=== PATIENT | female | born 1945 | race Two or more races ===

== ENCOUNTER 2019-06-24 19:29 | Inpatient (IN) | payer MEDICARE, MEDICAID ==
[~2019-06-24] VITALS: Ht 160 cm; Wt 69.9 kg
--- NOTE | 2019-06-24 19:30 | NUR ---
PT BIB PRIVATE AMBULANCE C/O PSYCH EVAL FOR VOLUNTARY GEROPSYCH ADMISSION. PT IS AAOX4, NOT IN RESPIRATORY DISTRESS, HOOKED TO MONITOR, KEPT RESTED AND COMFORTABLE, WILL CONTINUE TO MONITOR.
--- NOTE | 2019-06-24 19:58 | NUR ---
AT BEDSIDE FOR EVAL.
--- NOTE | 2019-06-24 20:03 | NUR ---
BED ASSIGNMENT 213D
--- NOTE | 2019-06-24 20:12 | NUR ---
LYNDA BOURGEOIS AT BEDSIDE FOR BLOOD DRAW.
[2019-06-24 20:27] LABS: BASOPHILS # (AUTO) 0.1 /CMM (0.0-0.2); BASOPHILS % (AUTO) 0.8 % (0.0-2.0); EOSINOPHILS % (AUTO) 0.9 % (0.0-6.0); HEMATOCRIT 37 % (33-45); HEMOGLOBIN 12.4 g/dL (11.5-14.8); LYMPHOCYTES # (AUTO) 2.4 /CMM (0.8-4.8); LYMPHOCYTES % (AUTO) 22.9 % (20.0-44.0); MEAN CORPUSCULAR HGB CONC 34 g/dl (31.0-36.0); MEAN CORPUSCULAR VOLUME 89 fL (82-100); MONOCYTES # (AUTO) 1.2 /CMM (0.1-1.30); MONOCYTES % (AUTO) 11.6 % (2.0-12.0); NEUTROPHILS # (AUTO) 6.6 /CMM (1.8-8.9); NEUTROPHILS % (AUTO) 63.8 % (43.0-81.0); PLATELET COUNT (AUTO) 270 /CMM (150-450); RED BLOOD CELL COUNT(AUTO) 4.12 MIL/uL (4.0-5.2); WHITE BLOOD COUNT (AUTO) 10.3 K/uL (4.3-11.0)
[2019-06-24 20:38] LABS: CALCIUM, SERUM 8.7 mg/dL (8.5-10.1); CARBON DIOXIDE 29 mmol/L (21-32); CHLORIDE 98 mmol/L (98-107); CREATININE 0.8 mg/dL (0.6-1.3); GLUCOSE 258 mg/dL (74-106); POTASSIUM 3.4 mmol/L (3.5-5.1); SODIUM SERUM 134 mmol/L (136-145); UREA NITROGEN, BLOOD 10 mg/dL (7-18)
--- NOTE | 2019-06-24 20:53 | NUR ---
URINE SPECIMEN COLLECTED AND SENT TO LAB.
--- NOTE | 2019-06-24 21:20 | NUR ---
REPORT GIVEN TO ZHANG MOSQUERA FOR ASHLEY.
[2019-06-24 21:27] LABS: BILIRUBIN,URINE Negative (NEGATIVE); BLOOD, URINE Trace-intact Ery/uL (NEGATIVE); COLOR,URINE Yellow (YELLOW); KETONES,URINE Negative (NEGATIVE); LEUKOCYTE ESTERASE ,URINE Moderate (NEGATIVE); NITRITE, URINE Negative (NEGATIVE); PROTEIN,URINE Negative (NEGATIVE); UGLUCOSE 100 MG/DL mg/dL (NEGATIVE)
[2019-06-24 21:29] LABS: APPEARANCE,URINE SLIGHTLY HAZY (CLEAR)
[2019-06-24 21:40] LABS: BACTERIA,URINE Many /HPF (None Seen); RBC,URINE 0-2 /HPF (0-2); SQUAMOUS EPITHELIAL CELL,UR Moderate /HPF (None Seen)
[2019-06-24] MEDS ORDERED: ACETAMINOPHEN 325 MG TABLET PO PRN (22:30)
[2019-06-24] MEDS ORDERED: LORAZEPAM 0.5 MG TABLET PO PRN (22:30)
[2019-06-24] MEDS ORDERED: BLOOD SUGAR DIAGNOSTIC 1 EACH STRIP IN ONE (22:30)
[2019-06-24] MEDS ORDERED: MAGNESIUM HYDROXIDE 30 ML UDC PO PRN (22:30)
--- NOTE | 2019-06-24 22:30 | NUR ---
GPS RN NOTES: INTIALLY BLOOD SUGAR CHECK ON ADMISSION. BLOOD SUGAR 230, PT REFUSED TO TAKE REGULAR INSULIN COVERAGE. ENCOURAGE X 3 EXPLAIN RISK AND BENEFITS. PT REFUSED STRONGLY. WILL CONTINUE TO MONITOR.
[2019-06-24] MEDS ORDERED: SIMV40TA5 PO (22:32)
[2019-06-24] MEDS ORDERED: ESCI20TA PO (22:39)
[2019-06-24] MEDS ORDERED: GABA-534 PO (22:39)
[2019-06-24] MEDS ORDERED: TRAM50TA2 (22:39)
[2019-06-24] MEDS ORDERED: HYDR-3980 PO (22:44)
[2019-06-24] MEDS ORDERED: TRAZ-214 (22:46)
[2019-06-24] MEDS ORDERED: INSU100V39 SQ (22:53)
[2019-06-24] MEDS ORDERED: INSU100V7 SQ (22:53)
[2019-06-24] MEDS ORDERED: SITA1TAB6 PO (22:56)
[2019-06-24] MEDS ORDERED: DEXL60CA3 PO (22:57)
[2019-06-24] MEDS ORDERED: PARO10TA86 PO (23:00)
[2019-06-24] MEDS ORDERED: HYDR50CA PO (23:02)
[2019-06-25] MEDS ORDERED: DEXTROSE 50%-WATER 50 ML DISP.SYRIN IV PRN
--- NOTE | 2019-06-25 00:15 | NUR ---
GPS RN NOTES: PT REFUSED LISINOPRIL 5MG PO . ENCOURAGE X 3 EXPLAIN RISK AND BENEFITS. PT REFUSED STRONGLY. BLOOD PRESSURE WNL. BP 130/72 AND PULSE 72. WILL CONTINUE TO MONITOR.
[2019-06-25 00:55] VITALS: BP 132/70
[2019-06-25] MEDS: INSULIN REGULAR, HUMAN 100 UNIT/ML 3 ML VIAL SQ PRN ×5 (00:57→21:30)
--- NOTE | 2019-06-25 00:58 | NUR ---
GPS CHEMIST PHYSICAL NOTES: ADMITTED 74 Y/O FEMALE. PT ADMITTED FROM [facility] ER TO GPS ON 5150. PER HOLD PATIENT CLAIMS SHE IS DEPRESSED AND HAVING SUICIDAL IDEATION WITH PLAN TO OVERDOSE ON INSULIN. PATIENT STATED , "I WANT A QUICK WAY TO GO". PATIENT REPORTED SHE LOST HER BEST FRIEND LAST YEAR AND SHE HAD PROBLEMS COPING WITH IT SINCE THEN. UPON FACE TO FACE ASSESSMENT PATIENT IS ALERT ORIENTED X 2-3, COOPERATIVE, ANXIOUS, DEPRESSED, FLAT AFFECT, DISORGANIZED, AND NEEDY. VENU SI/ HI AT THIS TIME. PATIENT STATES, "IM IN HERE BECAUSE I HAD PAIN AND IM OVERWHELMED." PATIENT REFUSED TO SIGN CONSENT PAPERS DUE TO STRESS/ NOT IN THE MOOD. ENVIRONMENTAL SAFETY CHECK DONE Q15MIN. ENCOURAGE PT TO VERBALIZE FEELINGS AND CONCERNS TO STAFF. ORIENTED TO THE UNIT . MD AWARE AND NOTIFIED OF ADMISSION, BELONGINGS AND CONTRABAND WERE DONE. NURSING ASSESSMENT DONE. SKIN ASSESSMENT DONE; PICTURE TAKEN AND PLACE IN CHART. PT RIGHTS DISCUSS BY MEAT GRADER. PROVIDE THE PT WITH HANDBOOK AND MEDICATION GUIDE. VITALS SIGNS WNL. NO S/S RESP DISTRESS NOTED. CONTINUE TO MONITOR
[2019-06-25] MEDS ORDERED: Z GUARD REMEDY 4 OZ OINT TP PRN (05:30)
--- NOTE | 2019-06-25 06:45 | NUR ---
GPS RN NOTES: LEFT A MESSAGE TO JUANITA LOU TELEPHONE NUMBER [phone]. UNABLE TO NOTIFY RONNA ESPINOZA TELEPHONE [phone] DUE TO BUSY LINE. ENDORSE TO NEXT SHIFT FOR CONTINUE OF CARE.
[2019-06-25 07:14] LABS: BASOPHILS # (AUTO) 0.1 /CMM (0.0-0.2); BASOPHILS % (AUTO) 1.1 % (0.0-2.0); EOSINOPHILS % (AUTO) 1.2 % (0.0-6.0); HEMATOCRIT 37 % (33-45); HEMOGLOBIN 12.5 g/dL (11.5-14.8); LYMPHOCYTES # (AUTO) 2.9 /CMM (0.8-4.8); LYMPHOCYTES % (AUTO) 28.9 % (20.0-44.0); MEAN CORPUSCULAR HGB CONC 34 g/dl (31.0-36.0); MEAN CORPUSCULAR VOLUME 88 fL (82-100); MONOCYTES # (AUTO) 1.1 /CMM (0.1-1.30); MONOCYTES % (AUTO) 10.9 % (2.0-12.0); NEUTROPHILS # (AUTO) 5.8 /CMM (1.8-8.9); NEUTROPHILS % (AUTO) 57.9 % (43.0-81.0); PLATELET COUNT (AUTO) 285 /CMM (150-450); RED BLOOD CELL COUNT(AUTO) 4.23 MIL/uL (4.0-5.2)
--- NOTE | 2019-06-25 07:17 | NUR ---
GPS RN NOTES: PATIENT WAS COMPLAINT WITH CARE.NO ACUTE DISTRESS NOTED. ALL NEEDS ATTENDED AND ANTICIPATED WILL CONTINUE PLAN OF CARE.
[2019-06-25 07:59] LABS: CHOLESTEROL 154 mg/dL (<200); HDL CHOLESTEROL 27 mg/dL (40-60); LDL 109 mg/dL (0-99); TRIGLYCERIDES 102 mg/dL (30-150)
[2019-06-25 08:00] VITALS: BP 110/65
[2019-06-25 08:00] LABS: ALBUMIN 2.5 g/dL (3.4-5.0); BILIRUBIN,TOTAL 0.3 mg/dL (0.2-1.0); CALCIUM, SERUM 8.8 mg/dL (8.5-10.1); CREATININE 0.8 mg/dL (0.6-1.3); MAGNESIUM 1.8 mg/dL (1.8-2.4); PHOSPHORUS 2.8 mg/dL (2.5-4.9); POTASSIUM 3.4 mmol/L (3.5-5.1); TOTAL PROTEIN, SERUM 7.5 g/dL (6.4-8.2)
[2019-06-25 08:12] LABS: THYROID STIMULATING HORMONE 1.571 uIU/mL (0.358-3.74)
[2019-06-25] MEDS: GABAPENTIN 300 MG CAPSULE PO SCH ×2 (08:48→17:20)
[2019-06-25] MEDS: BLOOD SUGAR DIAGNOSTIC 1 EACH STRIP IN SCH ×4 (08:48→21:16)
[2019-06-25] MEDS: DOCUSATE SODIUM 100 MG CAPSULE PO SCH ×2 (08:48→17:20)
[2019-06-25] MEDS: LISINOPRIL (5MG) 5 MG TABLET PO SCH ×3 (08:49→21:21)
[2019-06-25] MEDS: MAG HYDROX/AL HYDROX/SIMETH 30 ML UDC PO PRN ×2 (08:54→08:57)
[2019-06-25] MEDS: NITROFURANTOIN/NITROFURAN MAC 100 MG CAPSULE PO SCH ×2 (09:40→21:21)
[2019-06-25] MEDS: Z GUARD REMEDY 4 OZ OINT TP SCH (09:45)
--- NOTE | 2019-06-25 09:46 | NUR ---
GPS/RN-NOTES PATIENT STATED" I NEED ATIVAN FOR MY ANXIETY" ATIVAN 0.5MG P.O GIVEN PRN ORDER. WILL CONT. MONITORING FOR SAFETY AND BEHAVIOR.
--- NOTE | 2019-06-25 09:55 | NUR ---
GPS/RN-NOTES PATIENT IN THE DAY ROOM WATCHING TV,STATED" MAALOX HELPS A LITTLE".
--- NOTE | 2019-06-25 10:50 | NUR ---
GPS/RN-NOTES PATIENT IN THE DAY ROOM WATCHING TV,CALM NO ACUTE DISTRESS NOTED.
[2019-06-25] MEDS: LINAGLIPTIN 5 MG TABLET PO SCH (11:11)
[2019-06-25] MEDS: ESCITALOPRAM OXALATE (10 MG) 10 MG TABLET PO SCH (11:24)
[2019-06-25] MEDS ORDERED: POTASSIUM CHLORIDE 20 MEQ TAB.PRT.SR PO SCH (12:00)
[2019-06-25] MEDS: INSULIN ASPART/LISPRO 100 UNIT/ML CARTRIDGE SQ SCH ×2 (12:37→17:23)
[2019-06-25] MEDS: HYDROCODONE/APAP 5/325MG 1 EACH TABLET PO PRN (14:31)
--- NOTE | 2019-06-25 15:02 | NUR ---
UR NOTE: NAYE faxed clinicals to William with [facility] fax: [phone] P: [phone] as pt is under [place] for fee for service and is managed by [place].
--- NOTE | 2019-06-25 15:03 | NUR ---
SW attempted to contact pts friend/roommate Jeyson [phone]; phone number is not accepting calls at this time.
--- NOTE | 2019-06-25 15:48 | NUR ---
INITIAL DISCHARGE NOTE: Patient wishes to discharge back home [address] [facility] [address] . SW will help form a safe and proper discharge in collaboration with .
[2019-06-25 16:00] VITALS: BP 108/54
[2019-06-25] MEDS: METFORMIN 500 MG TABLET PO SCH (17:20)
[2019-06-25 20:29] VITALS: BP 102/62
[2019-06-25] MEDS: SIMVASTATIN 20 MG TABLET PO SCH (21:21)
[2019-06-25] MEDS: INSULIN GLARGINE, 100 UNIT/ML CARTRIDGE SQ SCH (21:35)
[2019-06-26] MEDS: HYDROCODONE/APAP 5/325MG 1 EACH TABLET PO PRN ×2 (06:16→16:02)
[2019-06-26 07:20] LABS: CALCIUM, SERUM 8.7 mg/dL (8.5-10.1); CREATININE 0.7 mg/dL (0.6-1.3); POTASSIUM 3.6 mmol/L (3.5-5.1)
[2019-06-26] MEDS: BLOOD SUGAR DIAGNOSTIC 1 EACH STRIP IN SCH ×4 (07:55→21:35)
[2019-06-26 08:00] VITALS: BP 121/64
--- NOTE | 2019-06-26 08:00 | NUR ---
RN NOTE: PATIENT REFUSED 0730 INSULIN PER SLIDING SCALE x3. PATIENT STATES "I'M SLEEPING, LEAVE ME ALONE"
--- NOTE | 2019-06-26 08:13 | NUR ---
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 RED RASH NOTED TO PERINEUM AND GROINFOLDS, PRESENT ON ADMISSION. RECOMMENDATIONS MADE FOR SKIN CARE AND PROTECTION. DISCUSSED WITH NURSING STAFF AND PT. WILL SEE PRN. PT INDEPENDENT WITH BED MOBILITY AND USES WALKER. PT IS MOSTLY CONTINENT. CURRENT LUIZA SCORE IS 19. Addendum: 06/26/19 at 0815 by CLEM LANGLEY WNDNU Amended: Links added.
[2019-06-26] MEDS: GABAPENTIN 300 MG CAPSULE PO SCH ×2 (09:01→16:01)
[2019-06-26] MEDS: DOCUSATE SODIUM 100 MG CAPSULE PO SCH ×2 (09:01→16:01)
[2019-06-26] MEDS: ESCITALOPRAM OXALATE (10 MG) 10 MG TABLET PO SCH (09:01)
[2019-06-26] MEDS: NITROFURANTOIN/NITROFURAN MAC 100 MG CAPSULE PO SCH ×2 (09:01→20:21)
[2019-06-26] MEDS: LINAGLIPTIN 5 MG TABLET PO SCH (09:01)
[2019-06-26] MEDS: INSULIN ASPART/LISPRO 100 UNIT/ML CARTRIDGE SQ SCH ×3 (09:08→17:22)
[2019-06-26] MEDS: MINERAL OIL/PETROLATUM,WHITE 120 GM JAR TP SCH (09:13)
[2019-06-26] MEDS: CLOTRIMAZOLE 1% 15 GM TUBE TP SCH ×2 (09:13→17:26)
[2019-06-26] MEDS: Z GUARD REMEDY 4 OZ OINT TP SCH (09:13)
[2019-06-26] MEDS: METFORMIN 500 MG TABLET PO SCH ×2 (09:16→16:01)
[2019-06-26] MEDS: INSULIN REGULAR, HUMAN 100 UNIT/ML 3 ML VIAL SQ PRN ×3 (09:17→21:51)
[2019-06-26] MEDS: LISINOPRIL (5MG) 5 MG TABLET PO SCH ×2 (09:17→20:21)
--- NOTE | 2019-06-26 12:13 | NUR ---
UR NOTE: NAYE faxed clinicals to William with [facility] fax: [phone] P: [phone] as pt is under [place] for fee for service and is managed by [place].
--- NOTE | 2019-06-26 14:55 | NUR ---
Group Note: SW encouraged pt to participate in group on 06/26/19 at 2pm discussing social supports. Pt appears to be isolative and depressed. Pt refused to participate in group and stated that she does not have any supports in her life.
[2019-06-26 16:00] VITALS: BP 123/63
[2019-06-26 20:10] VITALS: BP 133/79
[2019-06-26] MEDS: SIMVASTATIN 20 MG TABLET PO SCH (21:12)
[2019-06-26] MEDS: INSULIN GLARGINE, 100 UNIT/ML CARTRIDGE SQ SCH (21:49)
[2019-06-27] MEDS: HYDROCODONE/APAP 5/325MG 1 EACH TABLET PO PRN ×3 (02:31→20:36)
[2019-06-27] MEDS: BLOOD SUGAR DIAGNOSTIC 1 EACH STRIP IN SCH ×4 (07:45→20:44)
[2019-06-27] MEDS: INSULIN REGULAR, HUMAN 100 UNIT/ML 3 ML VIAL SQ PRN ×2 (07:47→12:09)
[2019-06-27 08:00] VITALS: BP 123/58
[2019-06-27] MEDS: GABAPENTIN 300 MG CAPSULE PO SCH ×2 (08:29→16:18)
[2019-06-27] MEDS: DOCUSATE SODIUM 100 MG CAPSULE PO SCH ×2 (08:29→16:18)
[2019-06-27] MEDS: ESCITALOPRAM OXALATE (10 MG) 10 MG TABLET PO SCH (08:29)
[2019-06-27] MEDS: INSULIN ASPART/LISPRO 100 UNIT/ML CARTRIDGE SQ SCH ×3 (08:29→17:19)
[2019-06-27] MEDS: NITROFURANTOIN/NITROFURAN MAC 100 MG CAPSULE PO SCH (08:30)
[2019-06-27] MEDS: LINAGLIPTIN 5 MG TABLET PO SCH (08:30)
[2019-06-27] MEDS: METFORMIN 500 MG TABLET PO SCH ×2 (08:31→16:18)
[2019-06-27] MEDS: LISINOPRIL (5MG) 5 MG TABLET PO SCH ×2 (09:00→20:25)
[2019-06-27] MEDS: CLOTRIMAZOLE 1% 15 GM TUBE TP SCH ×2 (09:11→16:55)
[2019-06-27] MEDS: MINERAL OIL/PETROLATUM,WHITE 120 GM JAR TP SCH (09:11)
[2019-06-27] MEDS: Z GUARD REMEDY 4 OZ OINT TP SCH (09:11)
--- NOTE | 2019-06-27 10:20 | NUR ---
RN NOTE: PATIENT COMPLAINED OF 7/10 PAIN TO LEFT KNEE. ADMINISTERED PRN NORCO.
[2019-06-27] MEDS: LEVOFLOXACIN (500MG) 500 MG TABLET PO SCH (10:37)
--- NOTE | 2019-06-27 12:47 | NUR ---
SW received a call from Valentina Macdonald, APS social media manager [phone] requesting discharge information. Per Valentina, she was unable to disclose reason for APS involvement but confirmed pt does live with friend in the [place] address listed on facesheet.
--- NOTE | 2019-06-27 15:15 | NUR ---
GROUP NOTE: SW encouraged pt to participate in group on 06/27/19 at 2pm discussing "discharge planning." Pt refused and stated that she wanted to remain in bed due to being in pain and needing stronger pain medications. Pt stated that at this time she did not want to discuss her discharge plan as she was not feeling well.
[2019-06-27] MEDS: MAG HYDROX/AL HYDROX/SIMETH 30 ML UDC PO PRN (15:43)
--- NOTE | 2019-06-27 15:44 | NUR ---
RN NOTE: PATIENT C/O INDIGESTION. ADMINISTERED MAALOX ORDERED.
[2019-06-27 16:00] VITALS: BP 115/54
[2019-06-27 20:00] VITALS: BP 139/68
--- NOTE | 2019-06-27 20:00 | NUR ---
GPS RN NOTE: PATIENT C/O HAVING DIARRHEA X 5 SINCE DURING THE DAY, OFFERED SNACKS, NOTIFIED YAEL WITH ORDER OF MEDS PRN, STOOL FOR CDIFF COLLECTION AND D/C COLACE NOTED AND CARRIED OUT. PATIENT ALSO C/O LEFT KNEE PAIN 04/06, PRN NORCO AND HOT COMPRESS GIVEN, PATIENT APPRECIATED. WILL CONTINUE TO MONITOR Q15 MINS FOR SAFETY
[2019-06-27] MEDS: LOPERAMIDE HCL (2 MG CAP) 2 MG CAPSULE PO PRN (20:25)
[2019-06-27] MEDS: SIMVASTATIN 20 MG TABLET PO SCH (20:44)
[2019-06-27] MEDS: INSULIN GLARGINE, 100 UNIT/ML CARTRIDGE SQ SCH (20:45)
[2019-06-28] MEDS: BLOOD SUGAR DIAGNOSTIC 1 EACH STRIP IN SCH ×4 (08:23→21:24)
[2019-06-28] MEDS: MINERAL OIL/PETROLATUM,WHITE 120 GM JAR TP SCH (08:27)
[2019-06-28] MEDS: INSULIN ASPART/LISPRO 100 UNIT/ML CARTRIDGE SQ SCH ×3 (08:29→16:47)
[2019-06-28] MEDS: INSULIN REGULAR, HUMAN 100 UNIT/ML 3 ML VIAL SQ PRN (08:30)
[2019-06-28] MEDS: LEVOFLOXACIN (500MG) 500 MG TABLET PO SCH (08:32)
[2019-06-28] MEDS: ESCITALOPRAM OXALATE (10 MG) 10 MG TABLET PO SCH (08:32)
[2019-06-28] MEDS: LINAGLIPTIN 5 MG TABLET PO SCH (08:33)
[2019-06-28] MEDS: GABAPENTIN 300 MG CAPSULE PO SCH ×2 (08:33→16:49)
[2019-06-28] MEDS: METFORMIN 500 MG TABLET PO SCH ×2 (08:33→16:49)
[2019-06-28] MEDS: LISINOPRIL (5MG) 5 MG TABLET PO SCH ×2 (08:34→20:54)
[2019-06-28 08:38] VITALS: BP 108/56
[2019-06-28] MEDS: CLOTRIMAZOLE 1% 15 GM TUBE TP SCH ×2 (08:46→16:48)
[2019-06-28] MEDS: Z GUARD REMEDY 4 OZ OINT TP SCH (10:44)
--- NOTE | 2019-06-28 11:15 | NUR ---
UR NOTE: NYAE faxed clinicals to William with [facility] fax: [phone] P: [phone] as pt is under [place] for fee for service and is managed by [place].
[2019-06-28] MEDS: HYDROCODONE/APAP 5/325MG 1 EACH TABLET PO PRN ×2 (12:32→20:59)
--- NOTE | 2019-06-28 12:52 | NUR ---
GROUP NOTE: SW encouraged pt to attend group discussing "issues with current hospitalization." Pt asleep and not easily aroused.
[2019-06-28 16:00] VITALS: BP 128/65
--- NOTE | 2019-06-28 18:22 | NUR ---
GPS RN NOTE PATIENT HAD BOWEL MOVEMENT, NO DIARRHEA PRESENT PER PATIENT. BUT PATIENT UNABLE TO GET STOOL SAMPLE AND FLUSHED STOOL. WILL ENDORSE TO CHANGE BOOTH ATTENDANT TO GRAB STOOL SAMPLE FOR CDIFF COLLECTION.
--- NOTE | 2019-06-28 19:32 | NUR ---
RESTING DURING INITIAL ROUNDING. SHOWS NO S/S OF ANY PAIN.
[2019-06-28 20:06] VITALS: BP 113/66
--- NOTE | 2019-06-28 20:59 | NUR ---
C/O PAIN ON THE LEFT KNEE, 6/10 ON PAIN SACLE, HYDROCODONE 5/325 MG TAB 1 PO GIVEN.
[2019-06-28] MEDS: SIMVASTATIN 20 MG TABLET PO SCH (21:01)
--- NOTE | 2019-06-28 21:17 | NUR ---
ACCUCHECK NOW, 116 MG/DL, NO SLIDING SCALE DUE AT THIS TIME. REQUESTED FOR APPLE SAUCE AND 2 TREY CRACKERS FOR SNACKS.
[2019-06-28] MEDS: INSULIN GLARGINE, 100 UNIT/ML CARTRIDGE SQ SCH ×2 (21:30→22:00)
--- NOTE | 2019-06-29 02:02 | NUR ---
Accucheck at 2100 = 116 MG/DL. PATIENT REFUSED TO HAVE LANTUS COVERAGE. HS SNACKS GIVEN APPLE SAUCE AND 2 CRACKERS
--- NOTE | 2019-06-29 02:50 | NUR ---
c/o headache, Tylenol 650 mg tab po given.
[2019-06-29] MEDS: BLOOD SUGAR DIAGNOSTIC 1 EACH STRIP IN SCH ×4 (07:43→21:04)
[2019-06-29] MEDS: INSULIN REGULAR, HUMAN 100 UNIT/ML 3 ML VIAL SQ PRN ×3 (07:59→21:10)
[2019-06-29 08:00] VITALS: BP 123/52
[2019-06-29] MEDS: METFORMIN 500 MG TABLET PO SCH ×2 (08:46→17:04)
[2019-06-29] MEDS: GABAPENTIN 300 MG CAPSULE PO SCH ×2 (08:47→17:04)
[2019-06-29] MEDS: LEVOFLOXACIN (500MG) 500 MG TABLET PO SCH (08:47)
[2019-06-29] MEDS: ESCITALOPRAM OXALATE (10 MG) 10 MG TABLET PO SCH (08:47)
[2019-06-29] MEDS: MINERAL OIL/PETROLATUM,WHITE 120 GM JAR TP SCH (08:48)
[2019-06-29] MEDS: LINAGLIPTIN 5 MG TABLET PO SCH (08:48)
[2019-06-29] MEDS: CLOTRIMAZOLE 1% 15 GM TUBE TP SCH ×2 (08:49→17:03)
[2019-06-29] MEDS: HYDROCODONE/APAP 5/325MG 1 EACH TABLET PO PRN ×2 (08:51→17:09)
[2019-06-29] MEDS: INSULIN ASPART/LISPRO 100 UNIT/ML CARTRIDGE SQ SCH ×3 (08:53→16:51)
[2019-06-29] MEDS: Z GUARD REMEDY 4 OZ OINT TP SCH (08:54)
[2019-06-29] MEDS: MAG HYDROX/AL HYDROX/SIMETH 30 ML UDC PO PRN (08:57)
[2019-06-29] MEDS: LISINOPRIL (5MG) 5 MG TABLET PO SCH ×2 (09:00→21:00)
--- NOTE | 2019-06-29 12:32 | NUR ---
ZHANG NOTE: PATIENT HAD FORMED BOWEL MOVEMENT. NO LOOSE STOOL. MODERATE AMOUNT. Addendum: 06/29/19 at 1240 by TACOS CINTRON RN PATIENT HAD FIRST LOOSE STOOL.
--- NOTE | 2019-06-29 13:28 | NUR ---
RN NOTE: PATIENT HAS BEEN COMPLAINING OF A LOT OF PAIN TO THE LEFT KNEE THAT HAS BEEN POORLY CONTROLLED. DR EDOUARD CONTACTED. ORDERS FOR PAIN CONSULT IMPLICATED. CONTACTED DR SHERRON FREITAS [phone] AND LEFT VM TO CONTACT BACK IN REGARDS TO PATIENT'S CONDITION. AWAITING PHONE CALL.
[2019-06-29 16:00] VITALS: BP 129/70
--- NOTE | 2019-06-29 16:52 | NUR ---
RN NOTE: BLOOD SUGAR 92. 1700 CAMRELO CLAUDIO
--- NOTE | 2019-06-29 17:10 | NUR ---
RN NOTE: AT 1700 PT C/O 7/10 LEFT KNEE PAIN. MEDICATED WITH NORCO 5/325MG PER MD ORDERS.
[2019-06-29 20:11] VITALS: BP 131/70
[2019-06-29] MEDS: SIMVASTATIN 20 MG TABLET PO SCH (21:04)
[2019-06-29] MEDS: INSULIN GLARGINE, 100 UNIT/ML CARTRIDGE SQ SCH (21:09)
--- NOTE | 2019-06-29 21:17 | NUR ---
RN NOTES PATIENT IS A/OX3. REFUSED BP MEDICATIONS. PER PATIENT,"I DON'T WANT THE BP MEDS 'COZ MY BP IS LOW". EXPLAINED THE RISK AND BENEFITS AND THAT HER BP IS 131/70. PATIENT STATED THAT IT'S LOW FOR HER. BSL CHECKED- 150MG/DL. INSULIN 2 UNITS GIVEN PER SLIDING SCALE. SNACKS PROVIDED
[2019-06-29] MEDS: TEMAZEPAM 7.5 MG CAPSULE PO PRN (22:36)
[2019-06-30] MEDS: METFORMIN 500 MG TABLET PO SCH ×2 (07:58→16:17)
[2019-06-30] MEDS: GABAPENTIN 300 MG CAPSULE PO SCH ×2 (07:58→16:17)
[2019-06-30] MEDS: ESCITALOPRAM OXALATE (10 MG) 10 MG TABLET PO SCH (07:58)
[2019-06-30] MEDS: LEVOFLOXACIN (500MG) 500 MG TABLET PO SCH (07:58)
[2019-06-30] MEDS: LINAGLIPTIN 5 MG TABLET PO SCH (07:58)
[2019-06-30] MEDS: LISINOPRIL (5MG) 5 MG TABLET PO SCH ×2 (07:59→20:11)
[2019-06-30] MEDS: HYDROCODONE/APAP 5/325MG 1 EACH TABLET PO PRN ×3 (08:13→22:19)
[2019-06-30] MEDS: BLOOD SUGAR DIAGNOSTIC 1 EACH STRIP IN SCH ×4 (08:14→21:02)
[2019-06-30] MEDS: INSULIN ASPART/LISPRO 100 UNIT/ML CARTRIDGE SQ SCH ×3 (08:14→16:48)
[2019-06-30] MEDS: CLOTRIMAZOLE 1% 15 GM TUBE TP SCH ×2 (08:29→17:36)
[2019-06-30] MEDS: MINERAL OIL/PETROLATUM,WHITE 120 GM JAR TP SCH (08:29)
[2019-06-30] MEDS: Z GUARD REMEDY 4 OZ OINT TP SCH (08:29)
[2019-06-30 09:11] VITALS: BP 134/88
[2019-06-30] MEDS: INSULIN REGULAR, HUMAN 100 UNIT/ML 3 ML VIAL SQ PRN (11:23)
[2019-06-30 16:00] VITALS: BP 107/50
[2019-06-30 19:59] VITALS: BP 122/69
[2019-06-30 20:10] VITALS: BP 122/69
--- NOTE | 2019-06-30 20:40 | NUR ---
rn notes; RECEIVED PT, IN BED, STATED SHE'S IN GOOD SHAPE PT VERBALIZED. PT IS A/O X3 ON RA RESPIRATIONS EVEN AND UNLABORED. PT RECEIVING NORCO PRN FOR LEFT KNEE PAIN. PT REPORTEDLY HAVING LOOSE STOOL, BUT NO REPORTS OF BM TODAY. ON ACCU CHECK ACHS. PT ADMITS SHE STILL FEELING DEPRESSED, PT SEEN INTERACTING WITH ROOM MATES AND WITH OTHER PATIENTS. ACCORDING TO PT, SHE DOES NOT HAVE ANY PLANS OF HURTING HERSELF, BECAUSE RIGHT NOW HER PAIN IS WELL MANAGE. SHE STATED THE ONLY REASON WHY SHE WOULD LIKE TO LEAVE THE WORLD IS BECAUSE OF TOO MUCH PAIN ON HER LEFT KNEE, SINCE AFTER SURGERY. SAFETY PRECAUTIONS FOR FALL INITIATED, SIDE RAILS UP X2 FOR SAFETY AND WILL CONTINUE MONITORING PT [id number] FOR SAFETY AND ANY CHANGES IN BEHAVIOR.
[2019-06-30] MEDS: SIMVASTATIN 20 MG TABLET PO SCH (21:01)
[2019-06-30] MEDS: TEMAZEPAM 7.5 MG CAPSULE PO PRN (21:02)
[2019-06-30] MEDS: INSULIN GLARGINE, 100 UNIT/ML CARTRIDGE SQ SCH (21:08)
--- NOTE | 2019-06-30 21:08 | NUR ---
PRN RESTORIL: PT REQUESTED FOR RESTORIL TO HELP HER SLEEP. PRN RESTORIL ADMINISTERED TO PT AT THIS TIME, ALSO OFFERED WARM PACKS FOR PT'S LEFT KNEE PAIN. PRN DOTTY DUE AT 2216.
--- NOTE | 2019-06-30 21:10 | NUR ---
blood glucose 121: blood glucose 121, no insulin coverage given per sliding scale. will monitor pt for any s/s of hypoglycemia.
--- NOTE | 2019-06-30 22:19 | NUR ---
prn norco: pt c/o left knee pain, 03/06 requesting for norco, prn norco 5/325 mg tab po aministered to pt at this time. will continue monitoring pt.
[2019-07-01] MEDS: INSULIN REGULAR, HUMAN 100 UNIT/ML 3 ML VIAL SQ PRN ×4 (07:35→21:14)
[2019-07-01] MEDS: BLOOD SUGAR DIAGNOSTIC 1 EACH STRIP IN SCH ×4 (07:41→21:16)
[2019-07-01 08:00] VITALS: BP 132/83
[2019-07-01] MEDS: MINERAL OIL/PETROLATUM,WHITE 120 GM JAR TP SCH (08:36)
[2019-07-01] MEDS: CLOTRIMAZOLE 1% 15 GM TUBE TP SCH ×2 (08:36→16:21)
[2019-07-01] MEDS: LISINOPRIL (5MG) 5 MG TABLET PO SCH ×2 (08:36→21:00)
[2019-07-01] MEDS: LEVOFLOXACIN (500MG) 500 MG TABLET PO SCH (08:36)
[2019-07-01] MEDS: HYDROCODONE/APAP 5/325MG 1 EACH TABLET PO PRN ×2 (08:37→16:12)
[2019-07-01] MEDS: GABAPENTIN 300 MG CAPSULE PO SCH ×2 (08:37→16:12)
[2019-07-01] MEDS: METFORMIN 500 MG TABLET PO SCH ×2 (08:38→16:12)
[2019-07-01] MEDS: ESCITALOPRAM OXALATE (10 MG) 10 MG TABLET PO SCH (08:38)
[2019-07-01] MEDS: LINAGLIPTIN 5 MG TABLET PO SCH (08:38)
[2019-07-01] MEDS: Z GUARD REMEDY 4 OZ OINT TP SCH (08:42)
[2019-07-01] MEDS: INSULIN ASPART/LISPRO 100 UNIT/ML CARTRIDGE SQ SCH ×3 (08:43→16:24)
--- NOTE | 2019-07-01 13:33 | NUR ---
UR NOTE: NAYE faxed clinicals to William with [facility] fax: [phone] P: [phone] as pt is under [place] for fee for service and is managed by [place].
[2019-07-01 16:00] VITALS: BP 115/71
--- NOTE | 2019-07-01 16:32 | NUR ---
RN NOTE: 1700 INSULIN HELD, BS 94MG/DL
[2019-07-01 19:46] VITALS: BP 90/61
[2019-07-01] MEDS: TEMAZEPAM 7.5 MG CAPSULE PO PRN (21:16)
[2019-07-01] MEDS: SIMVASTATIN 20 MG TABLET PO SCH (21:16)
[2019-07-01] MEDS: INSULIN GLARGINE, 100 UNIT/ML CARTRIDGE SQ SCH (21:21)
--- NOTE | 2019-07-01 21:35 | NUR ---
RN NOTES: BLOOD SUGAR THIS PM WAS 137. 2 UNITS OF INSULIN WAS ADMINISTERED. 20 UNITS OF LANTUS ADMINISTERED WELL. SNACK WAS ADMINISTERED TO PT. PT ALSO REQUESTED FOR SLEEPING PILL. PT WAS ADMINISTERED RESTORIL 7.5MG PO. WILL CONTINUE TO MONITOR.
[2019-07-02 08:00] VITALS: BP 114/67
[2019-07-02] MEDS: BLOOD SUGAR DIAGNOSTIC 1 EACH STRIP IN SCH ×4 (08:09→21:19)
[2019-07-02] MEDS: INSULIN REGULAR, HUMAN 100 UNIT/ML 3 ML VIAL SQ PRN ×2 (08:11→21:25)
[2019-07-02] MEDS: INSULIN ASPART/LISPRO 100 UNIT/ML CARTRIDGE SQ SCH ×3 (08:13→17:25)
[2019-07-02] MEDS: MINERAL OIL/PETROLATUM,WHITE 120 GM JAR TP SCH (08:15)
[2019-07-02] MEDS: CLOTRIMAZOLE 1% 15 GM TUBE TP SCH ×2 (08:15→17:22)
[2019-07-02] MEDS: Z GUARD REMEDY 4 OZ OINT TP SCH (08:15)
--- NOTE | 2019-07-02 08:34 | NUR ---
UR NOTE: NAYE faxed clinicals to William with [facility] fax: [phone] P: [phone] as pt is under [place] for fee for service and is managed by [place].
--- NOTE | 2019-07-02 09:00 | NUR ---
INDIVIDUAL COUNSELING: NAYE spoke with pt regarding her discharge plan, NAYE informed pt she will be discharging on Monday07/03/19 back home. Pt stated that she was aware and asked NAYE to contact her friend Jeyson [phone] to coordinate transportation.
[2019-07-02] MEDS: LINAGLIPTIN 5 MG TABLET PO SCH (09:03)
[2019-07-02] MEDS: ESCITALOPRAM OXALATE (10 MG) 10 MG TABLET PO SCH (09:03)
[2019-07-02] MEDS: HYDROCODONE/APAP 5/325MG 1 EACH TABLET PO PRN (09:04)
[2019-07-02] MEDS: METFORMIN 500 MG TABLET PO SCH ×2 (09:04→17:21)
[2019-07-02] MEDS: GABAPENTIN 300 MG CAPSULE PO SCH ×2 (09:04→17:21)
[2019-07-02] MEDS: LEVOFLOXACIN (500MG) 500 MG TABLET PO SCH (09:04)
[2019-07-02] MEDS: LISINOPRIL (5MG) 5 MG TABLET PO SCH ×2 (09:04→21:00)
--- NOTE | 2019-07-02 09:15 | NUR ---
NAYE contacted pts friend Jeyson [phone] to coordinate transportation, Jeyson stated that he will be able to pick pt up between 12:30-1:00pm.
--- NOTE | 2019-07-02 09:22 | NUR ---
RN NOTE: PATIENT COMPLAINING OF 7/10 PAIN. PRN NORCO GIVEN.
--- NOTE | 2019-07-02 09:45 | NUR ---
RN NOTE: PATIENT HAD A LOOSE STOOL.
--- NOTE | 2019-07-02 12:27 | NUR ---
RN NOTE: PATIENT'S 1130 BS 104MG/DL. 1300 INSULIN HELD.
[2019-07-02 15:54] VITALS: BP 124/68
--- NOTE | 2019-07-02 16:10 | NUR ---
Group Note: SW encouraged pt to attend group on 07/02/19 at 1pm discussing discharge planning. Pt remained in her bed and did not want to participate in group. Pt stated that she is going to be discharged home tomorrow and therefore she does not need a group to talk about it.
--- NOTE | 2019-07-02 18:30 | NUR ---
RN NOTE: PATIENTS 1630 BS 151MG/DL, TID INSULIN GIVEN. SLIDING SCALE HELD D/T PATIENT ONLY EATING 50% OF DINNER.
--- NOTE | 2019-07-02 19:20 | NUR ---
RN NOTE RECEIVED PT IN STABLE CONDITION A/O X3. CURRENTLY IN BED. NO S/S OF DISTRESS, NO C/O PAIN OR N/V. NO SIGNS OF SI OR HI. ALL CURRENT NEEDS ATTENDED TO. WILL CONT. TO MONITOR PT'S BEHAVIOR CLOSELY. SAFETY PRECAUTIONS IN PLACE.
[2019-07-02 20:05] VITALS: BP 133/73
[2019-07-02 20:45] VITALS: BP 133/73
[2019-07-02] MEDS: SIMVASTATIN 20 MG TABLET PO SCH (21:15)
[2019-07-02] MEDS: TEMAZEPAM 7.5 MG CAPSULE PO PRN (21:15)
[2019-07-02] MEDS: INSULIN GLARGINE, 100 UNIT/ML CARTRIDGE SQ SCH (21:24)
[2019-07-03] MEDS: LOPERAMIDE HCL (2 MG CAP) 2 MG CAPSULE PO PRN (03:23)
--- NOTE | 2019-07-03 04:54 | NUR ---
RN NOTE PT NOTED WITH THIRD WATERY STOOL. WILL COLLECT SPECIMEN FOR C. DIFF TESTING. ASSESSMENT PAPER ALSO COMPLETED PRIOR TO GOING TO LAB.
--- NOTE | 2019-07-03 05:11 | NUR ---
RN NOTE KURT NOTIFIED OF 3RD WATERY STOOL, NEW ORDER TO COLLECT SPECIMEN FOR C.DIFF.
[2019-07-03] MEDS: BLOOD SUGAR DIAGNOSTIC 1 EACH STRIP IN SCH ×2 (07:30→11:52)
[2019-07-03 08:00] VITALS: BP 114/56
--- NOTE | 2019-07-03 08:37 | NUR ---
NAYE contacted Psychiatrist: Dr. Chuy Baker Address: [address] [place] [address] and scheduled an appointment for Tuesday July 09, 2019 at 2:00pm. NAYE faxed clinicals to .
[2019-07-03] MEDS: INSULIN ASPART/LISPRO 100 UNIT/ML CARTRIDGE SQ SCH ×2 (09:00→12:50)
[2019-07-03] MEDS: ESCITALOPRAM OXALATE (10 MG) 10 MG TABLET PO SCH (09:08)
[2019-07-03 09:09] VITALS: BP 114/56
[2019-07-03] MEDS: LISINOPRIL (5MG) 5 MG TABLET PO SCH (09:09)
[2019-07-03] MEDS: LEVOFLOXACIN (500MG) 500 MG TABLET PO SCH (09:09)
[2019-07-03] MEDS: GABAPENTIN 300 MG CAPSULE PO SCH (09:09)
[2019-07-03] MEDS: MINERAL OIL/PETROLATUM,WHITE 120 GM JAR TP SCH (09:10)
[2019-07-03] MEDS: LINAGLIPTIN 5 MG TABLET PO SCH (09:10)
[2019-07-03] MEDS: METFORMIN 500 MG TABLET PO SCH (09:10)
[2019-07-03] MEDS: CLOTRIMAZOLE 1% 15 GM TUBE TP SCH (09:11)
[2019-07-03] MEDS: Z GUARD REMEDY 4 OZ OINT TP SCH (09:12)
--- NOTE | 2019-07-03 09:20 | NUR ---
DISCHARGE NOTE: Pt will be discharged via private vehicle between 12:30-1:00pm home to [facility] [address]. Pts friend Jeyson [phone] will be picking pt up and transporting home. Pts mood appears euthymic with congruent affect. Pt denied visual/auditory hallucinations and denied suicidal/homicidal ideation. Pt will follow up with Psychiatrist: Dr. Chuy Baker Address: [address] [place] [id number] on Tuesday July 09, 2019 at 2:00pm. SW will also follow up with Process Development Chemist: Dr. Yudith Ricks Address: [address] [place] [address] . The multidisciplinary exit care form was done, printed, signed, and given to the patient.
--- NOTE | 2019-07-03 09:23 | NUR ---
UR NOTE: NAYE contacted William with [facility] P: [phone] to inform him pt will be discharged on this present day. NAYE informed him she will fax discharge clinicals once it has been uploaded by psychiatrist.
[2019-07-03] MEDS: INSULIN REGULAR, HUMAN 100 UNIT/ML 3 ML VIAL SQ PRN (11:55)
--- NOTE | 2019-07-03 13:34 | NUR ---
Patient discharge to home with caregiver, Jeyson, and all belongings. Patient thankful to staff for all her care. Says that the care credit card she had was missing. Says she will cancel it. Refused to sign for belongings, firearm notification or discharge. Her caregiver says he will be able to care for her as he has been doing and signed the acknowledgement. Patient ambulatory independently without assist. She has a cane in case she needs it for ambulating. Alex Zaidi RN
== END 2019-07-03 13:20 | disposition home or self-care (01) | DRG 885 ==
LOC: ER 19:33 → GPS 20:25
PROVIDERS: ADMIT Psychiatry & Neurology Psychiatry; ATTEND Internal Medicine
DX: F33.2 Major depressive disorder, recurrent severe without psychotic features (principal); E11.65 Type 2 diabetes mellitus with hyperglycemia; R45.851 Suicidal ideations; N39.0 Urinary tract infection, site not specified; E87.6 Hypokalemia; F41.9 Anxiety disorder, unspecified; E11.42 Type 2 diabetes mellitus with diabetic polyneuropathy; E78.5 Hyperlipidemia, unspecified; G89.29 Other chronic pain; M19.90 Unspecified osteoarthritis, unspecified site; R03.0 Elevated blood-pressure reading, without diagnosis of hypertension; Z88.0 Allergy status to penicillin; E66.3 Overweight; Z68.27 Body mass index [BMI] 27.0-27.9, adult
CPT/HCPCS: 36415; 80048-TC; 80053-TC; 80061-TC; 81000-TC; 82962-TC; 83735-TC; 84100-TC; 84443-TC; 85025-TC; 87081-TC; 87086-TC; 97116-TC; 97530-TC; J1815